=== PATIENT | male | born 1985 | race African-American/Black ===

== ENCOUNTER 2024-11-27 08:46 | Emergency (ER) | payer OTHER ==
[~2024-11-27] VITALS: Ht 182.9 cm; Wt 86.4 kg
[2024-11-27] MEDS ORDERED: LISI10TA24 PO (09:03)
[2024-11-27 09:16] VITALS: TEMP 98
[2024-11-27 10:24] VITALS: BP 115/74; PULSE 78; RESP 17; O2SAT 99
== END 2024-11-27 10:25 | disposition home or self-care (01) ==
LOC: EMS 08:53
DX: S86.011A Strain of right Achilles tendon, initial encounter (principal); I10 Essential (primary) hypertension; F17.290 Nicotine dependence, other tobacco product, uncomplicated; Z71.6 Tobacco abuse counseling; Z79.899 Other long term (current) drug therapy; W19.XXXA Unspecified fall, initial encounter; Y93.01 Activity, walking, marching and hiking; Y92.89 Other specified places as the place of occurrence of the external cause; Y99.8 Other external cause status
CPT/HCPCS: 29515; 99283; 99406